=== PATIENT | male | born 1990 | race Caucasian/White ===

== ENCOUNTER → 2022-05-03 | Emergency (ER) | payer BC ==
[~2022-05-03] VITALS: Ht 175.3 cm; Wt 86.2 kg
== END | disposition left against medical advice (07) ==
LOC: ER 08:52
DX: S90.32XA Contusion of left foot, initial encounter (principal); W20.8XXA Other cause of strike by thrown, projected or falling object, initial encounter; Y92.832 Beach as the place of occurrence of the external cause